=== PATIENT | female | born 1975 | race African-American/Black ===

== ENCOUNTER 2021-01-11 22:36 | Emergency (ER) | payer MEDICAID ==
[~2021-01-11] VITALS: Ht 172.7 cm; Wt 91.0 kg
[2021-01-11 23:55] LABS: BASOPHILS % 1.3 % (0.0-2.0); CHLORIDE 106 mEq/L (98-107); EOSINOPHILS % 2.7 % (0.0-5.0); HEMATOCRIT. 34.9 % (36.0-48.0); HEMOGLOBIN. 11.6 g/dL (12.0-16.0); LYMPHOCYTES % 37.9 % (20.0-50.0); MEAN CORPUSCULAR HEMOGLOBIN 28.6 pg (28.0-32.0); MEAN CORPUSCULAR VOLUME 86.1 fL (81.0-99.0); MEAN PLATELET VOLUME 9.5 fl (7.4-10.4); MONOCYTES % 8.5 % (2.0-8.0); NEUTROPHILS % 49.6 % (40.0-76.0); PLATELET 202 x1000/uL (130-400); RED BLOOD CELL COUNT 4.06 mill/uL (4.2-5.4); RED CELL DISTRIBUTION WIDTH 13.8 % (11.6-14.6)
[2021-01-12] MEDS ORDERED: HYDRALAZINE 20MG/ML VIAL IV ONE (04:15)
[2021-01-12 04:31] VITALS: BP 172/92
== END 2021-01-12 04:41 | disposition short-term general hospital (02) ==
LOC: ER 22:36
DX: R07.89 Other chest pain (principal); J45.909 Unspecified asthma, uncomplicated; E11.9 Type 2 diabetes mellitus without complications; I10 Essential (primary) hypertension
CPT/HCPCS: 36415; 71045; 80053; 82962; 83880; 84484; 85025; 85379; 93005; 96374; 99285; J0360

== ENCOUNTER 2022-03-03 17:51 | Emergency (ER) | payer MEDICAID ==
[~2022-03-03] VITALS: Ht 165.1 cm; Wt 137.0 kg
[2022-03-03 18:41] LABS: BASOPHILS % 1.3 % (0.0-2.0); EOSINOPHILS % 1.9 % (0.0-5.0); HEMATOCRIT. 33.4 % (36.0-48.0); HEMOGLOBIN. 11.3 g/dL (12.0-16.0); LYMPHOCYTES % 37.2 % (20.0-50.0); MEAN CORPUSCULAR HEMOGLOBIN 28.7 pg (28.0-32.0); MEAN CORPUSCULAR VOLUME 84.7 fL (81.0-99.0); MEAN PLATELET VOLUME 9.3 fl (7.4-10.4); MONOCYTES % 7.4 % (2.0-8.0); NEUTROPHILS % 52.2 % (40.0-76.0); PLATELET 230 x1000/uL (130-400); RED BLOOD CELL COUNT 3.94 mill/uL (4.2-5.4)
[2022-03-03] MEDS ORDERED: SODIUM CHLORIDE 0.9% 1,000 ML IV ONE (18:45)
[2022-03-03] MEDS ORDERED: ONDANSETRON HCL 4MG/2ML INJ IV ONE (18:45)
[2022-03-03] MEDS ORDERED: ONDANSETRON HCL 4MG/2ML INJ IV NR (18:45)
[2022-03-03 18:48] LABS: CHLORIDE 99 mEq/L (98-107)
[2022-03-03] MEDS ORDERED: IOHEXOL-350 100 ML BOTTLE ONE (19:22)
[2022-03-03 20:04] LABS: CLARITY URINE CLEAR (CLEAR); COLOR URINE YELLOW (YELLOW); KETONES URINE TRACE (NEGATIVE); LEUKOCYTE ESTERASE URINE 1+ (NEGATIVE); NITRITE URINE NEGATIVE (NEGATIVE); OCCULT BLOOD URINE NEGATIVE (NEGATIVE); PROTEIN URINE NEGATIVE (NEGATIVE); SPECIFIC GRAVITY URINE 1.032 (1.005-1.030); UROBILINOGEN URINE 0.2 E.U./dL (0.2-1.0)
[2022-03-03] MEDS ORDERED: CEFTRIAXONE 1 G PREMIX 50 ML IV ONE (21:30)
[2022-03-03] MEDS ORDERED: CEFP200T13 MT (21:31)
[2022-03-03 22:00] VITALS: BP 142/91
== END 2022-03-03 22:35 | disposition home or self-care (01) ==
LOC: ER 17:51
DX: N39.0 Urinary tract infection, site not specified (principal); E86.0 Dehydration; E11.65 Type 2 diabetes mellitus with hyperglycemia; I10 Essential (primary) hypertension; J45.909 Unspecified asthma, uncomplicated; I25.2 Old myocardial infarction; E66.9 Obesity, unspecified; Z68.43 Body mass index [BMI] 50.0-59.9, adult; Z20.822 Contact with and (suspected) exposure to COVID-19
CPT/HCPCS: 36415; 71045; 71275; 80053; 81003; 81025; 83690; 83880; 84484; 85025; 85379; 93005; 93971; 96361; 96365; 96375; 99285; J0696; J2405; J7030; Q9967